=== PATIENT | female | born 1995 | race Caucasian/White ===

== ENCOUNTER → 2024-08-21 06:05 | Day surgery (SDC) | payer OTHER, SELFPAY ==
[2024-08-21] VITALS (10 sets, daily range): BP systolic 105–141; BP diastolic 66–95; BMI 24.9
[2024-08-21] MEDS: TYLENOL 1000 MG PO (06:41)
[2024-08-21] MEDS: MOBIC 15 MG PO (06:41)
[2024-08-21] MEDS: NORMOSOL-R/PLASMALYTE-A 1000 IV (06:42)
[2024-08-21] MEDS: DEMEROL 12.5 MG IV ×2 (10:00→10:10)
[2024-08-21] MEDS: DILAUDID 0.5 MG IV (10:21)
[2024-08-21] MEDS: ROXICODONE 5 MG PO (11:34)
== END ==
LOC: SDS 06:05
PROVIDERS: ATTENDING PHYSICIAN Orthopaedic Surgery
DX: S83.512A Sprain of anterior cruciate ligament of left knee, initial encounter (principal); S83.282A Other tear of lateral meniscus, current injury, left knee, initial encounter; X58.XXXA Exposure to other specified factors, initial encounter
CPT/HCPCS: 29888; 29881; C1713